=== PATIENT | female | born 1930 | race Hispanic/Latino ===

== ENCOUNTER 2019-03-18 12:03 | Emergency (ER) | payer MEDICARE, BC ==
[2019-03-18 12:28] VITALS: BMI 23.4
[2019-03-18 13:21] LABS: BASO # 0.05 K/mm3 (0.0-2.0); BASO % 0.6 % (0.0-3.0); EOS # 0.3 (0.0-0.7); EOS % 3.6 % (1.5-5.0); HEMOGLOBIN 12.2 g/dL (12.0-16.0); LYMPH # 2.7 (1.2-3.4); LYMPH % 31.7 % (22.0-35.0); MEAN CELL VOLUME 88.3 fl (80.0-105.0); MEAN CORPUSCULAR HEMOGLOBIN 29.8 pg (25.0-35.0); MEAN CORPUSCULAR HGB CONC 33.8 g/dl (31.0-37.0); MEAN PLATELET VOLUME 8.4 fl (7.0-11.0); MONO # 1.1 (0.1-0.6); MONO % 13.1 % (1.0-6.0); RBC 4.09 10^6/uL (3.5-6.1); RED CELL DISTRIBUTION WIDTH 12.9 % (11.5-14.5); WHITE BLOOD COUNT 8.7 10^3/uL (4.5-11.0)
--- NOTE | 2019-03-18 13:21 | ED PDOC ---
Arrival/HPI - General Chief Complaint: Abdominal Pain Time Seen by Provider: 03/18/19 12:36 Historian: Patient - History of Present Illness Narrative History of Present Illness (Text): 03/18/19 12:36 Nano Ricci is an 89 year old female, with no significant past medical history, who presents to the emergency department complaining of worsening constipation since 10 days. Patient also notes subjective fever, nausea, and vom iting. Pt appreciates right lower quadrant pain s/p small movement yesterday. Patient informs of using stool softener and enemas without improvement. Patient denies vision changes, chest pain, shortness of breath, cough, diarrhea, dysuria, hematuria, frequency, back pain, neck pain, headache, dizziness, rash, diaphoresis, or any other complaints. Time/Duration: > week (10 days) Symptom Course: Worsening Activities at Onset: Light Context: Home Past Medical History - Provider Review Nursing Documentation Reviewed: Yes - Infectious Disease Hx of Infectious Diseases: None - Cardiac Hx Cardiac Disorders: No - Pulmonary Hx Respiratory Disorders: No - Neurological Hx Neurological Disorder: No - HEENT Hx HEENT Disorder: No - Renal Hx Renal Disorder: No - Endocrine/Metabolic Hx Endocrine Disorders: No - Hematological/Oncological Hx Blood Disorders: No - Integumentary Hx Dermatological Disorder: No - Musculoskeletal/Rheumatological Hx Musculoskeletal Disorders: No - Gastrointestinal Hx Gastrointestinal Disorders: Yes Hx Diverticulitis: Yes - Genitourinary/Gynecological Hx Genitourinary Disorders: No - Psychiatric Hx Psychophysiologic Disorder: No Hx Substance Use: No - Surgical History Hx Orthopedic Surgery: Yes (Right ankle replacement) Family/Social History - Physician Review Nursing Documentation Reviewed: Yes Family/Social History: Unknown Family HX Smoking Status: Never Smoked Hx Alcohol Use: No Hx Substance Use: No Allergies/Home Meds Allergies/Adverse Reactions: Allergies No Known Allergies Allergy (Verified 03/18/19 12:28) Review of Systems - Review of Systems Constitutional: Fevers (subjective fever) Eyes: absent: Vision Changes Respiratory: absent: SOB Cardiovascular: absent: Chest Pain Gastrointestinal: Abdominal Pain (RLQ), Constipation, Nausea, Vomiting. absent: Diarrhea Genitourinary Female: absent: Dysuria, Frequency, Hematuria Musculoskeletal: absent: Back Pain, Neck Pain Skin: absent: Rash Neurological: absent: Headache, Dizziness Endocrine: absent: Diaphoresis Physical Exam Vital Signs Reviewed: Yes Vital Signs Temp Pulse Resp BP Pulse Ox 03/18/19 12:27 98.2 F 79 18 196/98 H 96 Temperature: Afebrile Blood Pressure: Hypertensive Pulse: Regular Respiratory Rate: Normal Appearance: Positive for: Well-Appearing, Non-Toxic, Comfortable Pain Distress: None Mental Status: Positive for: Alert and Oriented X 3 - Systems Exam Head: Present: Atraumatic, Normocephalic Pupils: Present: PERRL Extroacular Muscles: Present: EOMI Conjunctiva: Present: Normal Mouth: Present: Moist Mucous Membranes Neck: Present: Normal Range of Motion Respiratory/Chest: Present: Clear to Auscultation, Good Air Exchange. No: Respiratory Distress, Accessory Muscle Use, Wheezes, Rales, Rhonchi Cardiovascular: Present: Regular Rate and Rhythm, Normal S1, S2. No: Murmurs, Rub, Gallop Abdomen: Present: Tenderness (scant RLQ), Normal Bowel Sounds. No: Distention, Peritoneal Signs, Rebound, Guarding Back: Present: Normal Inspection Upper Extremity: Present: Normal Inspection. No: Cyanosis, Edema Lower Extremity: Present: Normal Inspection. No: Edema Neurological: Present: GCS=15, CN II-XII Intact, Speech Normal Skin: Present: Warm, Dry, Normal Color. No: Rashes Psychiatric: Present: Alert, Oriented x 3, Normal Insight, Normal Concentration Medical Decision Making ED Course and Treatment: 03/18/19 12:36 Impression: Patient is an 89 year old female, with no significant past medical history, who presents to the emergency department complaining of worsening constipation since 10 days. Plan: -- CT Abdomen/Pelvis IV Contrast -- Labs -- Blood Culture -- Urine Culture -- IV Fluids -- Toradol -- Zofran -- Reassess and disposition Prior Visits: Notes and results from previous visits were reviewed. Progress Notes: 03/18/19 15:03 IMPRESSION: 1. Multiple jejunal diverticula. 2. Extensive sigmoid diverticulosis without CT evidence for acute diverticulitis. 3. 3.0 x 3.0 cm presumable subserosal fibroid in the fundus of the uterus. Small amount of free fluid in the pelvis is of uncertain etiology. Clinical follow-up is advised please correlate with pelvic ultrasound. 4. 1.0 x 1.1 cm indeterminate lesion in the upper pole of the left kidney. Correlation with retroperitoneal ultrasound is recommended. A dedicated CT scan of the abdomen without and with intravenous contrast with renal protocol is also recommended for definitive characterization. 03/18/19 15:52 BP found to be elevated on reevaluation. Patient tolerating po and has no complaints. Spoke to Dr. Beyer who reports that as she has asympmatic htn she can be discharged on zestril 10mg and follow-up this week in office. Patient does not want to stay for po medications. She has no complaints and reports that she will go to the pharmacy - RAD Interpretation Radiology Orders: 03/18/19 13:02 ABD & PELVIS IV CONTRAST ONLY [CT] Stat - Medication Orders Current Medication Orders: Sodium Chloride (Sodium Chloride 0.9%) 1,000 mls @ 999 mls/hr IV .Q1H1M STA Stop: 03/18/19 14:02 Discontinued Medications Ketorolac Tromethamine (Toradol) 30 mg IVP STAT STA Stop: 03/18/19 13:03 Ondansetron HCl (Zofran Inj) 4 mg IVP STAT STA Stop: 03/18/19 13:03 - Scribe Statement The provider has reviewed the documentation as recorded by the Scribe Gregory Whitman All medical record entries made by the Scribe were at my direction and personally dictated by me. I have reviewed the chart and agree that the record accurately reflects my personal performance of the history, physical exam, medical decision making, and the department course for this patient. I have also personally directed, reviewed, and agree with the discharge instructions and disposition. Disposition/Present on Arrival - Present on Arrival Any Indicators Present on Arrival: No History of DVT/PE: No History of Uncontrolled Diabetes: No Urinary Catheter: No History of Decub. Ulcer: No History Surgical Site Infection Following: None - Disposition Have Diagnosis and Disposition been Completed?: Yes Diagnosis: Renal cyst, Diverticulosis, Fibroids, Asymptomatic hypertension Disposition: HOME/ ROUTINE Disposition Time: 15:52 Patient Plan: Discharge Condition: GOOD Discharge Instructions (ExitCare): Uterine Fibroids, High Blood Pressure in Adults, Diverticulosis (DC) Additional Instructions: Follow-up with your PMD within 2 days. Return to ED if condition worsens. Take blood pressure medication as prescribed. Prescriptions: Lisinopril [Zestril] 10 mg PO DAILY #20 tab Referrals: Beto Beyer MD [Primary Care Provider] - Follow up with primary Forms: [employer] (H[place]ian)
[2019-03-18] MEDS ORDERED: Iodixanol 320 MG/ML 100 ML BOTTLE IV ONE (13:27)
[2019-03-18] MEDS: Sodium Chloride 0.9% 1,000 ML IV STA ×2 (13:32→13:36)
[2019-03-18 13:36] LABS: ALB/GLOB RATIO 1.2 (1.1-1.8); ALBUMIN 3.7 g/dL (3.0-4.8); ALT/SGPT 25 U/L (7-56); AST/SGOT 29 U/L (14-36); BLOOD UREA NITROGEN 15 mg/dL (7-21); CALCIUM 9.1 mg/dL (8.4-10.5); GFR NON-AFRICAN AMERICAN 52; LIPASE 48 U/L (23-300)
[2019-03-18 14:04] LABS: PH,URINE 6.5 (4.7-8.0); URINE BILIRUBIN NEGATIVE (NEGATIVE); URINE BLOOD NEGATIVE (NEGATIVE); URINE GLUCOSE (UA) NEGATIVE (NEGATIVE); URINE LEUKOCYTE ESTERASE NEGATIVE Leu/uL (NEGATIVE); URINE PROTEIN NEGATIVE mg/dL (<30 mg/dL); URINE UROBILINOGEN 0.2 E.U./dL (<1 E.U./dL)
[2019-03-18 14:07] LABS: URINE APPEARANCE CLEAR (CLEAR); URINE COLOR YELLOW (YELLOW)
[2019-03-18 14:35] VITALS: RESP 19
--- NOTE | 2019-03-18 15:04 | CT ---
Date of service: 03/18/2019 PROCEDURE: CT Abdomen and Pelvis with contrast HISTORY: RLQ abdominal pain COMPARISON: None available. TECHNIQUE: CT scan of the abdomen and pelvis was performed after administration of intravenous contrast. Oral contrast was not administered. Coronal and sagittal reformatted images were obtained. Contrast dose: 100 mL Omnipaque 300 Radiation dose: Total exam DLP = 313.82 mGy-cm. This CT exam was performed using one or more of the following dose reduction techniques: Automated exposure control, adjustment of the mA and/or kV according to patient size, and/or use of iterative reconstruction technique. FINDINGS: LOWER THORAX: The visualized lungs are clear. LIVER: Normal in size with homogeneous enhancement. Diffuse fatty liver. No gross lesion or ductal dilatation. GALLBLADDER AND BILE DUCTS: Well distended. No calcified gallstones, wall thickening or pericholecystic fluid. PANCREAS: Normal in size with homogeneous enhancement. No gross lesion or ductal dilatation. SPLEEN: Normal in size and appearance. ADRENALS: No discrete nodule. KIDNEYS AND URETERS: Normal in size with homogeneous enhancement. No hydronephrosis. There is a 1.0 x 1.1 cm high attenuation exophytic lesion in the upper pole of the left kidney. There are 3 small subcentimeter low-attenuation lesions in the lower pole of the left which may represent cortical cysts and a small subcentimeter low-attenuation lesion in the right upper pole, too small to characterize by CT criteria likely simple cortical cysts.. VASCULATURE: No aortic aneurysm. There are aortic atherosclerotic calcifications present. BOWEL: Evaluation of the bowel is limited in the absence of oral contrast. The small bowel loops are normal in caliber. There are several jejunal diverticula. There is extensive sigmoid diverticulosis without CT evidence for acute diverticulitis. No bowel wall thickening or obstruction. APPENDIX: Normal appendix. PERITONEUM: Small amount of free fluid in the pelvis. No free air. LYMPH NODES: No enlarged lymph nodes. BLADDER: Well distended and normal in appearance. REPRODUCTIVE: The uterus is normal in size. There is a 3.0 x 3.0 cm low-attenuation exophytic lesion in the fundus of the uterus. BONES: There is severe dextroscoliosis in the lumbar spine and severe diffuse bone demineralization with advanced multilevel degenerative disc disease. OTHER FINDINGS: None. IMPRESSION: 1. Multiple jejunal diverticula. 2. Extensive sigmoid diverticulosis without CT evidence for acute diverticulitis. 3. 3.0 x 3.0 cm presumable subserosal fibroid in the fundus of the uterus. Small amount of free fluid in the pelvis is of uncertain etiology. Clinical follow-up is advised please correlate with pelvic ultrasound. 4. 1.0 x 1.1 cm indeterminate lesion in the upper pole of the left kidney. Correlation with retroperitoneal ultrasound is recommended. A dedicated CT scan of the abdomen without and with intravenous contrast with renal protocol is also recommended for definitive characterization.
[2019-03-18 15:45] VITALS: BP 220/130
[2019-03-18 16:08] VITALS: PULSE 77; TEMP 98; O2SAT 97
== END 2019-03-18 16:09 | disposition home or self-care (01) ==
LOC: ED 12:03
DX: K57.50 Diverticulosis of both small and large intestine without perforation or abscess without bleeding (principal); N28.1 Cyst of kidney, acquired; I10 Essential (primary) hypertension; D25.2 Subserosal leiomyoma of uterus
CPT/HCPCS: 74177; 80053; 81003; 83690; 83735; 84100; 85025; 87086; 99283; J7030; Q9967